=== PATIENT | female | born 1960 | race African-American/Black ===

== ENCOUNTER 2017-02-20 08:22 | Day surgery (SDC) | payer OTHER ==
[2017-02-18 15:00] VITALS: BMI 51.1
[2017-02-20] MEDS ORDERED: LIDOCAINE HCL 4% PRESERVE-FREE 5 ML AMP ONE (09:36)
[2017-02-20 10:21] VITALS: TEMP 98.5
[2017-02-20 11:03] VITALS: BP 132/70; PULSE 80
--- NOTE | 2017-02-23 12:25 | PATH ---
Surgical Pathology Report Patient Name: [facility]. Rec. #: [id number] /Age/Gender: 1960 (Age: 56) / F Account: [id number] Location: U-ENDOSCOPY Taken: 02/20/2017 Received: 02/20/2017 Reported: 02/23/2017 Physicians: Godwin Stephenson M.D. Specimen(s) Received A: BIOPSY ANASTOMOSIS B: BX GASTRIC POUCH C: BX GE JUNCTION Clinical History Pre-surgical evaluation for a revision of gastric sleeve Morbid obesity S/p gastric bypass surgery, 6 cm gastric pouch, hiatal hernia, normal anastomosis Final Diagnosis A. ANASTOMOSIS SITE, BIOPSY: SMALL BOWEL MUCOSA WITH ACTIVE AND CHRONIC INFLAMMATION. NO EVIDENCE OF DYSPLASIA/ADENOMA OR CARCINOMA. B. GASTRIC POUCH, BIOPSY: GASTRIC OXYNTIC MUCOSA WITH MILD CHRONIC GASTRITIS. IMMUNOSTAIN FOR H. PYLORI IS NEGATIVE FOR ORGANISMS. C. GE JUNCTION, BIOPSY: SQUAMOUS EPITHELIUM WITH CHRONIC INFLAMMATION AND REFLUX TYPE CHANGES. NO COLUMNAR EPITHELIUM PRESENT (NO INTESTINAL METAPLASIA/BROWER'S ESOPHAGUS IDENTIFIED). Electronically Signed Michael Montalvo M.D. Gross Description A. Received in formalin, labeled "biopsy anastomosis" is a flores, irregular portion of soft tissue measuring 0.5 cm in greatest dimension. The specimen is submitted in toto in one cassette. B. Received in formalin, labeled "biopsy gastric pouch" is a flores, irregular portion of soft tissue measuring 0.9 cm in greatest dimension. The specimen is submitted in toto in one cassette. C. Received in formalin, labeled "biopsy GE junction" is a flores, irregular portion of soft tissue measuring 0.2 cm in greatest dimension. The specimen is submitted in toto in one cassette. 02/20/201702/20/2017
== END 2017-02-20 12:45 | disposition home or self-care (01) ==
LOC: JASU-ENDO 08:22
PROVIDERS: ATTEND Internal Medicine Gastroenterology
PROC: 0DB68ZX Excision of Stomach, Via Natural or Artificial Opening Endoscopic, Diagnostic (ICD-10-PCS; 2017-02-20)
PROC: 0DB48ZX Excision of Esophagogastric Junction, Via Natural or Artificial Opening Endoscopic, Diagnostic (ICD-10-PCS; principal; 2017-02-20 10:00)
DX: Z01.818 Encounter for other preprocedural examination (principal); K29.50 Unspecified chronic gastritis without bleeding; Z98.84 Bariatric surgery status; Z98.0 Intestinal bypass and anastomosis status; K44.9 Diaphragmatic hernia without obstruction or gangrene
CPT/HCPCS: 88305-TC; 88342-TC